=== PATIENT | female | born 1950 | race Caucasian/White ===

== ENCOUNTER 2016-08-31 14:54 | Outpatient (RCR) | payer MEDICARE, OTHER ==
[2016-08-30 13:32] LABS: BASOPHILS % (AUTO) 0 % (0-10); EOSINOPHILS # (AUTO) 0.2 10^3/uL (0.0-0.3); EOSINOPHILS % (AUTO) 2 % (0-10); LYMPHOCYTES # (AUTO) 3.7 X 10^3 (1.0-4.0); LYMPHOCYTES % (AUTO) 40 % (12-44); MEAN CORPUSCULAR HEMOGLOBIN 32 PG (25-34); MEAN CORPUSCULAR HGB CONC 35 G/DL (32-36); MEAN CORPUSCULAR VOLUME 94 FL (80-99); MEAN PLATELET VOLUME 9.8 FL (7.4-10.4); MONOCYTES % (AUTO) 10 % (0-12); NEUTROPHILS # (AUTO) 4.5 X 10^3 (1.8-7.8); NEUTROPHILS % (AUTO) 48 % (42-75); PLATELET COUNT 212 10^3/uL (130-400); RED BLOOD COUNT 4.27 10^6/uL (4.35-5.85); RED CELL DISTRIBUTION WIDTH 12.4 % (10.0-14.5); WHITE BLOOD COUNT 9.3 10^3/uL (4.3-11.0)
[2016-08-30 14:11] LABS: ALANINE AMINOTRANSFERASE 21 U/L (0-55); ALBUMIN 4.4 G/DL (3.2-4.5); ANION GAP 7 MMOL/L (5-14); ASPARTATE AMINO TRANSFERASE 34 U/L (5-34); BILIRUBIN,TOTAL 0.5 MG/DL (0.1-1.0); BLOOD UREA NITROGEN 15 MG/DL (7-18); BUN/CREATININE RATIO 18; CALCIUM 9.6 MG/DL (8.5-10.1); CARBON DIOXIDE 28 MMOL/L (21-32); CHLORIDE 104 MMOL/L (98-107); CREATININE SERUM 0.82 MG/DL (0.60-1.30); GFR ESTIMATED > 60; GLUCOSE 86 MG/DL (70-105); LACTATE DEHYDROGENASE 221 U/L (125-220); POTASSIUM 4.6 MMOL/L (3.6-5.0); SODIUM 139 MMOL/L (135-145); TOTAL PROTEIN 6.5 G/DL (6.4-8.2)
== END 2016-11-28 | disposition home or self-care (01) ==
LOC: ONC 14:54
PROVIDERS: ATTEND Internal Medicine Hematology & Oncology
DX: C91.10 Chronic lymphocytic leukemia of B-cell type not having achieved remission (principal); Z85.3 Personal history of malignant neoplasm of breast
CPT/HCPCS: 36415; 80053; 83615; 85025; 99213

== ENCOUNTER 2016-12-27 09:27 | Outpatient (RCR) | payer MEDICARE, OTHER ==
--- OUTSIDE RECORDS SUMMARY | 2016-12-25 11:28 | XMS REPORT | Continuity of Care Document ---
Author Author [facility] Organization [facility] Address Unknown Phone Unavailable Allergies Active Description Code Type Severity Reaction Onset Reported/Identified Relationship to Patient Clinical Status Yes No Allergy Information Available [id number] Drug Allergy Unknown N/A 05/15/2016 Medications Problems Date Dx Coded Attending Type Code Diagnosis Diagnosed By 09/13/1455 SARAH CAGE Ot D72.820 LYMPHOCYTOSIS (SYMPTOMATIC) 09/13/1455 SARAH CAGE Ot Z85.3 PERSONAL HISTORY OF MALIGNANT NEOPLASM O 03/01/2016 DEL MARCELINO MD, Ot V76.12 OTH SCREEN MAMMO-MALIGN NEOPLASM OF MEGAN 03/01/2016 DEL MARCELINO MD, Ot Z12.31 ENCNTR SCREEN MAMMOGRAM FOR MALIGNANT NE 03/02/2016 DEL MARCELINO MD, Ot Z12.31 ENCNTR SCREEN MAMMOGRAM FOR MALIGNANT NE 03/08/2016 DEL MARCELINO MD Ot V76.12 OTH SCREEN MAMMO-MALIGN NEOPLASM OF MEGAN 03/08/2016 DEL MARCELINO MD Ot D72.829 ELEVATED WHITE BLOOD CELL COUNT, UNSPECI 03/08/2016 DEL MARCELINO MD, Ot Z12.31 ENCNTR SCREEN MAMMOGRAM FOR MALIGNANT NE 03/22/2016 EDL MARCELINO MD Ot D72.820 LYMPHOCYTOSIS (SYMPTOMATIC) 03/30/2016 DEL MARCELINO MD, Ot D72.820 LYMPHOCYTOSIS (SYMPTOMATIC) 03/31/2016 DEL MARCELINO MD, Ot D72.829 ELEVATED WHITE BLOOD CELL COUNT, UNSPECI 03/31/2016 DEL MARCELINO MD, Ot Z12.31 ENCNTR SCREEN MAMMOGRAM FOR MALIGNANT NE 04/11/2016 DEL MARCELINO MD, Ot D72.820 LYMPHOCYTOSIS (SYMPTOMATIC) 05/15/2016 DEL MARCELINO MD Ot V76.12 OTH SCREEN MAMMO-MALIGN NEOPLASM OF MEGAN 05/15/2016 DEL MARCELINO MD, Ot D72.829 ELEVATED WHITE BLOOD CELL COUNT, UNSPECI 05/15/2016 DEL MARCELINO MD, Ot Z12.31 ENCNTR SCREEN MAMMOGRAM FOR MALIGNANT NE 05/15/2016 DEL MARCELINO MD, Ot D72.820 LYMPHOCYTOSIS (SYMPTOMATIC) 05/15/2016 DEL MARCELINO MD, Ot D72.820 LYMPHOCYTOSIS (SYMPTOMATIC) 05/15/2016 SARAH CAGE Ot D72.820 LYMPHOCYTOSIS (SYMPTOMATIC) 05/15/2016 SARAH CAGE Ot Z85.3 PERSONAL HISTORY OF MALIGNANT NEOPLASM O 05/15/2016 DEL MARCELINO MD, Ot V76.12 OTH SCREEN MAMMO-MALIGN NEOPLASM OF MEGAN 05/15/2016 DEL MARCELINO MD, Ot D72.829 ELEVATED WHITE BLOOD CELL COUNT, UNSPECI 05/15/2016 DEL MARCELINO MD, Ot Z12.31 ENCNTR SCREEN MAMMOGRAM FOR MALIGNANT NE 05/15/2016 DEL MARCELINO MD, Ot D72.820 LYMPHOCYTOSIS (SYMPTOMATIC) 05/15/2016 DEL MARCELINO MD, Ot D72.820 LYMPHOCYTOSIS (SYMPTOMATIC) 05/15/2016 SARAH CAGE Ot D72.820 LYMPHOCYTOSIS (SYMPTOMATIC) 05/15/2016 SARAH CAGE Ot Z85.3 PERSONAL HISTORY OF MALIGNANT NEOPLASM O 05/16/2016 SARAH CAGE Ot C91.10 CHRONIC LYMPHOCYTIC LEUK OF B-CELL TYPE 05/19/2016 DEL MARCELINO MD, Ot D72.820 LYMPHOCYTOSIS (SYMPTOMATIC) 06/06/2016 SARAH CAGE Ot C91.10 CHRONIC LYMPHOCYTIC LEUK OF B-CELL TYPE 06/09/2016 DEL MARCELINO MD, Ot V76.12 OTH SCREEN MAMMO-MALIGN NEOPLASM OF MEGAN 06/09/2016 DEL MARCELINO MD, Ot D72.829 ELEVATED WHITE BLOOD CELL COUNT, UNSPECI 06/09/2016 DEL MARCELINO MD, Ot Z12.31 ENCNTR SCREEN MAMMOGRAM FOR MALIGNANT NE 06/09/2016 DEL MARCELINO MD Ot D72.820 LYMPHOCYTOSIS (SYMPTOMATIC) 06/09/2016 DEL MARCELINO MD, Ot D72.820 LYMPHOCYTOSIS (SYMPTOMATIC) 06/09/2016 SARAH CAGE Ot D72.820 LYMPHOCYTOSIS (SYMPTOMATIC) 06/09/2016 SARAH CAGE Ot Z85.3 PERSONAL HISTORY OF MALIGNANT NEOPLASM O 06/09/2016 SARAH CAGE Ot C91.10 CHRONIC LYMPHOCYTIC LEUK OF B-CELL TYPE 07/24/2016 DEL MARCELINO MD Ot V76.12 OTH SCREEN MAMMO-MALIGN NEOPLASM OF MEGAN 07/24/2016 DEL MARCELINO MD, Ot D72.829 ELEVATED WHITE BLOOD CELL COUNT, UNSPECI 07/24/2016 DEL MARCELINO MD Ot Z12.31 ENCNTR SCREEN MAMMOGRAM FOR MALIGNANT NE 07/24/2016 DEL MARCELINO MD Ot D72.820 LYMPHOCYTOSIS (SYMPTOMATIC) 07/24/2016 DEL MARCELINO MD, Ot D72.820 LYMPHOCYTOSIS (SYMPTOMATIC) 07/24/2016 SARAH CAGE Ot D72.820 LYMPHOCYTOSIS (SYMPTOMATIC) 07/24/2016 SARAH CAGE Ot Z85.3 PERSONAL HISTORY OF MALIGNANT NEOPLASM O 07/24/2016 SARAH CAGE Ot C91.10 CHRONIC LYMPHOCYTIC LEUK OF B-CELL TYPE 07/24/2016 SARAH CAGE N Ot D72.820 LYMPHOCYTOSIS (SYMPTOMATIC) 07/24/2016 SARAH CAGE N Ot Z85.3 PERSONAL HISTORY OF MALIGNANT NEOPLASM O 08/29/2016 SARAH CAEG N Ot D72.820 LYMPHOCYTOSIS (SYMPTOMATIC) 08/29/2016 SARAH CAGE N Ot Z85.3 PERSONAL HISTORY OF MALIGNANT NEOPLASM O 08/31/2016 SARAH CAGE N Ot D72.820 LYMPHOCYTOSIS (SYMPTOMATIC) 08/31/2016 SARAH CAGE N Ot Z85.3 PERSONAL HISTORY OF MALIGNANT NEOPLASM O 10/12/2016 SARAH CAGE Ot C91.10 CHRONIC LYMPHOCYTIC LEUK OF B-CELL TYPE 10/12/2016 SARAH CAGE N Ot Z85.3 PERSONAL HISTORY OF MALIGNANT NEOPLASM O 11/28/2016 SARAH CAGE N Ot C91.10 CHRONIC LYMPHOCYTIC LEUK OF B-CELL TYPE 11/28/2016 SARAH CAGE N Ot Z85.3 PERSONAL HISTORY OF MALIGNANT NEOPLASM O 11/29/2016 SARAH CAGE Ot C91.10 CHRONIC LYMPHOCYTIC LEUK OF B-CELL TYPE 11/29/2016 SARAH CAGE N Ot Z85.3 PERSONAL HISTORY OF MALIGNANT NEOPLASM O Procedures Results Encounters ACCT No. Visit Date/Time Discharge Status Pt. Type Provider Facility Loc./Unit Complaint [id number] 08/31/2016 14:54:00 2016 00:01:00 DIS Outpatient SHANNON CAGEJOANA Grayson [facility] ONC [id number] 06/01/2016 13:39:00 2015 14:56:00 DIS Outpatient FAUZIA SARAH Grayson [facility] ONC [id number] 07/01/2014 13:21:00 2013 23:59:59 CLS Outpatient DEL MARCELINO MD [facility] RAD SCREENING [id number] 02/26/2013 12:37:00 2012 23:59:59 CLS Outpatient [id number] 11/29/2016 00:09:00 PEN Preadmit SARAH CAGE [facility] ONC [id number] 05/15/2016 08:44:00 ACT Outpatient SARAH CAGE [facility] RAD CLL [id number] 03/20/2016 10:14:00 ACT Outpatient DEL MARCELINO MD [facility] LAB ELEVATED WBC'S [id number] 03/08/2016 12:09:00 ACT Outpatient DEL MARCELINO MD [facility] LAB INCREASED LYMPHOCYTES [id number] 03/01/2016 13:04:00 ACT Outpatient DEL MARCELINO MD [facility] RAD SCREENING [id number] 03/01/2016 12:02:00 ACT Outpatient DEL MARCELINO MD [facility] LAB LEUKOCYTOSIS
[2016-12-25 11:47] LABS: BASOPHILS % (AUTO) 0 % (0-10); EOSINOPHILS # (AUTO) 0.3 10^3/uL (0.0-0.3); EOSINOPHILS % (AUTO) 3 % (0-10); LYMPHOCYTES # (AUTO) 3.7 X 10^3 (1.0-4.0); LYMPHOCYTES % (AUTO) 41 % (12-44); MEAN CORPUSCULAR HEMOGLOBIN 32 PG (25-34); MEAN CORPUSCULAR HGB CONC 34 G/DL (32-36); MEAN CORPUSCULAR VOLUME 95 FL (80-99); MEAN PLATELET VOLUME 9.5 FL (7.4-10.4); MONOCYTES % (AUTO) 11 % (0-12); NEUTROPHILS # (AUTO) 3.9 X 10^3 (1.8-7.8); NEUTROPHILS % (AUTO) 44 % (42-75); PLATELET COUNT 210 10^3/uL (130-400); RED BLOOD COUNT 4.39 10^6/uL (4.35-5.85); RED CELL DISTRIBUTION WIDTH 12.6 % (10.0-14.5); WHITE BLOOD COUNT 8.9 10^3/uL (4.3-11.0)
[2016-12-25 12:24] LABS: ALANINE AMINOTRANSFERASE 19 U/L (0-55); ALBUMIN 4.1 G/DL (3.2-4.5); ANION GAP 8 MMOL/L (5-14); ASPARTATE AMINO TRANSFERASE 30 U/L (5-34); BILIRUBIN,TOTAL 0.4 MG/DL (0.1-1.0); BLOOD UREA NITROGEN 13 MG/DL (7-18); BUN/CREATININE RATIO 16; CALCIUM 9.3 MG/DL (8.5-10.1); CARBON DIOXIDE 28 MMOL/L (21-32); CHLORIDE 104 MMOL/L (98-107); CREATININE SERUM 0.79 MG/DL (0.60-1.30); GFR ESTIMATED > 60; GLUCOSE 84 MG/DL (70-105); LACTATE DEHYDROGENASE 206 U/L (125-220); POTASSIUM 4.7 MMOL/L (3.6-5.0); SODIUM 140 MMOL/L (135-145); TOTAL PROTEIN 6.4 G/DL (6.4-8.2)
== END 2017-03-25 | disposition home or self-care (01) ==
LOC: ONC 09:27
PROVIDERS: ATTEND Internal Medicine Hematology & Oncology
DX: C91.10 Chronic lymphocytic leukemia of B-cell type not having achieved remission (principal); Z85.3 Personal history of malignant neoplasm of breast
CPT/HCPCS: 36415; 80053; 83615; 85025; 99213

== ENCOUNTER 2017-07-04 14:56 | Outpatient (RCR) | payer MEDICARE, OTHER ==
[2017-06-27 15:18] LABS: BASOPHILS % (AUTO) 0 % (0-10); EOSINOPHILS # (AUTO) 0.2 10^3/uL (0.0-0.3); EOSINOPHILS % (AUTO) 2 % (0-10); LYMPHOCYTES # (AUTO) 4.2 X 10^3 (1.0-4.0); LYMPHOCYTES % (AUTO) 40 % (12-44); MEAN CORPUSCULAR HEMOGLOBIN 33 PG (25-34); MEAN CORPUSCULAR HGB CONC 34 G/DL (32-36); MEAN CORPUSCULAR VOLUME 96 FL (80-99); MONOCYTES % (AUTO) 9 % (0-12); NEUTROPHILS # (AUTO) 5.1 X 10^3 (1.8-7.8); NEUTROPHILS % (AUTO) 48 % (42-75); PLATELET COUNT 220 10^3/uL (130-400); RED BLOOD COUNT 4.22 10^6/uL (4.35-5.85); RED CELL DISTRIBUTION WIDTH 12.3 % (10.0-14.5); WHITE BLOOD COUNT 10.5 10^3/uL (4.3-11.0)
[2017-06-27 15:46] LABS: ALANINE AMINOTRANSFERASE 19 U/L (0-55); ALBUMIN 4.2 GM/DL (3.2-4.5); ANION GAP 7 MMOL/L (5-14); ASPARTATE AMINO TRANSFERASE 30 U/L (5-34); BILIRUBIN,TOTAL 0.5 MG/DL (0.1-1.0); BLOOD UREA NITROGEN 12 MG/DL (7-18); BUN/CREATININE RATIO 15; CALCIUM 9.3 MG/DL (8.5-10.1); CARBON DIOXIDE 30 MMOL/L (21-32); CHLORIDE 105 MMOL/L (98-107); CREATININE SERUM 0.79 MG/DL (0.60-1.30); GFR ESTIMATED > 60; GLUCOSE 104 MG/DL (70-105); LACTATE DEHYDROGENASE 216 U/L (125-220); POTASSIUM 4.2 MMOL/L (3.6-5.0); SODIUM 142 MMOL/L (135-145); TOTAL PROTEIN 6.9 GM/DL (6.4-8.2)
== END 2017-07-14 | disposition home or self-care (01) ==
LOC: ONC 14:56
PROVIDERS: ATTEND Internal Medicine Hematology & Oncology
DX: C91.10 Chronic lymphocytic leukemia of B-cell type not having achieved remission (principal); Z85.3 Personal history of malignant neoplasm of breast
CPT/HCPCS: 36415; 80053; 83615; 85025; 99213

== ENCOUNTER 2018-01-10 13:29 | Outpatient (RCR) | payer MEDICARE, OTHER ==
[2018-01-02 13:34] LABS: BASOPHILS % (AUTO) 0 % (0-10); EOSINOPHILS # (AUTO) 0.2 10^3/uL (0.0-0.3); EOSINOPHILS % (AUTO) 2 % (0-10); HEMATOCRIT 40 % (35-52); HEMOGLOBIN 13.5 G/DL (11.5-16.0); LYMPHOCYTES # (AUTO) 5.2 X 10^3 (1.0-4.0); LYMPHOCYTES % (AUTO) 47 % (12-44); MEAN CORPUSCULAR HEMOGLOBIN 33 PG (25-34); MEAN CORPUSCULAR HGB CONC 34 G/DL (32-36); MEAN CORPUSCULAR VOLUME 98 FL (80-99); MEAN PLATELET VOLUME 10.2 FL (7.4-10.4); MONOCYTES % (AUTO) 9 % (0-12); NEUTROPHILS # (AUTO) 4.8 X 10^3 (1.8-7.8); NEUTROPHILS % (AUTO) 43 % (42-75); PLATELET COUNT 209 10^3/uL (130-400); RED BLOOD COUNT 4.09 10^6/uL (4.35-5.85); RED CELL DISTRIBUTION WIDTH 12.1 % (10.0-14.5); WHITE BLOOD COUNT 11.2 10^3/uL (4.3-11.0)
[2018-01-02 13:58] LABS: ALANINE AMINOTRANSFERASE 18 U/L (0-55); ALBUMIN 4.3 GM/DL (3.2-4.5); ALKALINE PHOSPHATASE 62 U/L (40-136); BILIRUBIN,TOTAL 0.4 MG/DL (0.1-1.0); BUN/CREATININE RATIO 17; CALCIUM 9.4 MG/DL (8.5-10.1); CARBON DIOXIDE 27 MMOL/L (21-32); CHLORIDE 105 MMOL/L (98-107); CREATININE SERUM 0.77 MG/DL (0.60-1.30); GFR ESTIMATED > 60; GLUCOSE 107 MG/DL (70-105); POTASSIUM 4.3 MMOL/L (3.6-5.0); SODIUM 139 MMOL/L (135-145); TOTAL PROTEIN 6.5 GM/DL (6.4-8.2)
== END 2018-04-02 | disposition home or self-care (01) ==
LOC: ONC 13:29
PROVIDERS: ATTEND Internal Medicine Hematology & Oncology
DX: C91.10 Chronic lymphocytic leukemia of B-cell type not having achieved remission (principal); Z85.3 Personal history of malignant neoplasm of breast
CPT/HCPCS: 36415; 80053; 83615; 85025; 99213

== ENCOUNTER 2019-02-11 09:32 | Outpatient (RCR) | payer MEDICARE, OTHER ==
[2019-02-10 11:44] LABS: ABSOLUTE RETIC # 35 10e9/L (24-90); BASOPHILS % (AUTO) 0 % (0-10); EOSINOPHILS # (AUTO) 0.2 10^3/uL (0.0-0.3); EOSINOPHILS % (AUTO) 2 % (0-10); HEMATOCRIT 40 % (35-52); HEMOGLOBIN 13.5 G/DL (11.5-16.0); LYMPHOCYTES # (AUTO) 4.3 X 10^3 (1.0-4.0); LYMPHOCYTES % (AUTO) 42 % (12-44); MEAN CORPUSCULAR HEMOGLOBIN 32 PG (25-34); MEAN CORPUSCULAR HGB CONC 33 G/DL (32-36); MEAN CORPUSCULAR VOLUME 95 FL (80-99); MONOCYTES # (AUTO) 0.9 X 10^3 (0.0-1.0); MONOCYTES % (AUTO) 9 % (0-12); NEUTROPHILS # (AUTO) 4.7 X 10^3 (1.8-7.8); NEUTROPHILS % (AUTO) 47 % (42-75); PLATELET COUNT 199 10^3/uL (130-400); RED CELL DISTRIBUTION WIDTH 12.1 % (10.0-14.5); RETICULOCYTE % 0.82 % (0.50-2.40); WHITE BLOOD COUNT 10.1 10^3/uL (4.3-11.0)
[2019-02-10 12:09] LABS: ALANINE AMINOTRANSFERASE 23 U/L (0-55); ALBUMIN 4.4 GM/DL (3.2-4.5); ALKALINE PHOSPHATASE 66 U/L (40-136); BILIRUBIN,TOTAL 0.6 MG/DL (0.1-1.0); BUN/CREATININE RATIO 18; CALCIUM 9.6 MG/DL (8.5-10.1); CARBON DIOXIDE 26 MMOL/L (21-32); CHLORIDE 102 MMOL/L (98-107); GFR ESTIMATED > 60; GLUCOSE 90 MG/DL (70-105); SODIUM 137 MMOL/L (135-145); TOTAL PROTEIN 6.5 GM/DL (6.4-8.2)
== END 2019-05-11 | disposition home or self-care (01) ==
LOC: ONC 09:32
PROVIDERS: ATTEND Internal Medicine Hematology & Oncology
DX: C91.10 Chronic lymphocytic leukemia of B-cell type not having achieved remission (principal); Z85.3 Personal history of malignant neoplasm of breast
CPT/HCPCS: 36415; 80053; 85025; 85045; 99213

== ENCOUNTER 2020-04-01 09:21 | Outpatient (RCR) | payer MEDICARE, OTHER ==
[2020-03-30 10:31] LABS: ABSOLUTE RETIC # 32 10e9/L (24-90); BASOPHILS % (AUTO) 0 % (0-10); EOSINOPHILS # (AUTO) 0.4 10^3/uL (0.0-0.3); EOSINOPHILS % (AUTO) 4 % (0-10); HEMATOCRIT 40 % (35-52); HEMOGLOBIN 13.5 G/DL (11.5-16.0); LYMPHOCYTES # (AUTO) 6.2 X 10^3 (1.0-4.0); LYMPHOCYTES % (AUTO) 57 % (12-44); MEAN CORPUSCULAR HEMOGLOBIN 32 PG (25-34); MEAN CORPUSCULAR HGB CONC 33 G/DL (32-36); MEAN CORPUSCULAR VOLUME 95 FL (80-99); MEAN PLATELET VOLUME 9.9 FL (7.4-10.4); MONOCYTES # (AUTO) 1.1 X 10^3 (0.0-1.0); MONOCYTES % (AUTO) 10 % (0-12); NEUTROPHILS # (AUTO) 3.1 X 10^3 (1.8-7.8); NEUTROPHILS % (AUTO) 29 % (42-75); PLATELET COUNT 198 10^3/uL (130-400); RETICULOCYTE % 0.75 % (0.50-2.40); WHITE BLOOD COUNT 10.9 10^3/uL (4.3-11.0)
[2020-03-30 10:59] LABS: ALANINE AMINOTRANSFERASE 18 U/L (0-55); ALBUMIN 4.2 GM/DL (3.2-4.5); ALKALINE PHOSPHATASE 63 U/L (40-136); BILIRUBIN,TOTAL 0.5 MG/DL (0.1-1.0); BUN/CREATININE RATIO 14; CALCIUM 9.3 MG/DL (8.5-10.1); CARBON DIOXIDE 27 MMOL/L (21-32); CHLORIDE 104 MMOL/L (98-107); GFR ESTIMATED > 60; GLUCOSE 72 MG/DL (70-105); POTASSIUM 4.2 MMOL/L (3.6-5.0); SODIUM 139 MMOL/L (135-145); TOTAL PROTEIN 6.5 GM/DL (6.4-8.2)
== END 2020-06-28 | disposition home or self-care (01) ==
LOC: ONC 09:21 → EDSTATUS 10:15
PROVIDERS: ATTEND Internal Medicine Hematology & Oncology
DX: C91.10 Chronic lymphocytic leukemia of B-cell type not having achieved remission (principal)
CPT/HCPCS: 80053; 83615; 85025; 85045; 99213

== ENCOUNTER 2021-03-31 10:24 | Outpatient (RCR) | payer MEDICARE, OTHER ==
[2021-03-24 09:30] LABS: BASOPHILS # (AUTO) 0.1 10^3/uL (0.0-0.1); BASOPHILS % (AUTO) 1 % (0-10); EOSINOPHILS # (AUTO) 0.4 10^3/uL (0.0-0.3); EOSINOPHILS % (AUTO) 3 % (0-10); HEMATOCRIT 42 % (35-52); HEMOGLOBIN 13.9 g/dL (11.5-16.0); LYMPHOCYTES # (AUTO) 7.7 10^3/uL (1.0-4.0); LYMPHOCYTES % (AUTO) 65 % (12-44); MEAN CORPUSCULAR HEMOGLOBIN 32 pg (25-34); MEAN CORPUSCULAR HGB CONC 33 g/dL (32-36); MEAN CORPUSCULAR VOLUME 97 fL (80-99); MEAN PLATELET VOLUME 10.1 fL (9.0-12.2); MONOCYTES % (AUTO) 8 % (0-12); NEUTROPHILS # (AUTO) 2.7 10^3/uL (1.8-7.8); NEUTROPHILS % (AUTO) 23 % (42-75); PLATELET COUNT 171 10^3/uL (130-400); WHITE BLOOD COUNT 11.7 10^3/uL (4.3-11.0)
[2021-03-24 09:56] LABS: ALANINE AMINOTRANSFERASE 18 U/L (0-55); ALBUMIN 4.1 GM/DL (3.2-4.5); ALKALINE PHOSPHATASE 57 U/L (40-136); BILIRUBIN,TOTAL 0.5 MG/DL (0.1-1.0); BUN/CREATININE RATIO 14; CALCIUM 9.6 MG/DL (8.5-10.1); CARBON DIOXIDE 28 MMOL/L (21-32); CHLORIDE 103 MMOL/L (98-107); GFR ESTIMATED > 60; GLUCOSE 88 MG/DL (70-105); POTASSIUM 4.2 MMOL/L (3.6-5.0); SODIUM 139 MMOL/L (135-145); TOTAL PROTEIN 6.7 GM/DL (6.4-8.2)
== END 2021-06-22 | disposition home or self-care (01) ==
LOC: ONC 10:24
PROVIDERS: ATTEND Internal Medicine Hematology & Oncology
DX: C91.10 Chronic lymphocytic leukemia of B-cell type not having achieved remission (principal)
CPT/HCPCS: 80053; 83615; 85025; 99213

== ENCOUNTER → 2021-11-24 | Outpatient (CLI) | payer MEDICARE, OTHER ==
--- NOTE | 2021-11-24 14:11 | Diagnostic Imaging Report ---
INDICATION: Routine screening. Comparison is made with prior mammogram 03/01/2016. 2-D and 3-D bilateral screening mammography was performed with CAD. Both breasts are heterogeneously dense, limiting the sensitivity of mammography. Post-lumpectomy changes in the right breast are again noted. The post-therapeutic right breast appears stable. Left breast is unremarkable. No mass is identified. No malignant-appearing microcalcifications are seen. There are some multiple lymph nodes in the axilla bilaterally which appear to be more numerous than prior mammogram, indeterminate. IMPRESSION: BI-RADS Category 0 No mammographic features suspicious for malignancy are identified. However, there are some prominent and slightly dense lymph nodes in the axillae bilaterally which appears new since prior mammogram from 2016. Axillary ultrasound bilaterally would be useful for further evaluation. Dictated by: Dictated on workstation # [id number]
== END ==
LOC: RAD 11:30
PROVIDERS: ATTEND Internal Medicine
DX: Z12.31 Encounter for screening mammogram for malignant neoplasm of breast (principal)
CPT/HCPCS: 77063; 77067

== ENCOUNTER → 2021-12-05 | Outpatient (CLI) | payer MEDICARE, OTHER ==
--- NOTE | 2021-12-05 12:44 | Diagnostic Imaging Report ---
Bilateral breast ultrasound, limited. INDICATION: Abnormal mammogram The screening mammogram performed on 11/24/2021 failed to show any sign of malignancy. However, there did appear to be slightly enlarged lymph nodes in each axilla. By history, the patient has a diagnosis of chronic lymphocytic leukemia. On this exam, there are several prominent lymph nodes in each axilla. The 2 largest lymph nodes on the right measure 2.1 x 1.1 x 1.4 cm and 1.9 x 1.1 x 1.1 cm. On the left the two largest nodes measure 1.7 x 1.2 x 1.5 cm and 1.4 x 0.6 x 1.2 cm. These nodes have a typical appearance and there is no clear evidence for replacement of the nodes by a neoplastic or infectious process. Even so, the prominence of the nodes and the fact that there was no adenopathy on the previous mammogram performed on 02/20/2016 does raise the question of recurrent neoplasm. Clinical follow-up is recommended. If a tissue diagnosis is desired, then an ultrasound-guided biopsy of one of the larger lymph nodes should be considered. If further imaging is desired, then PET/CT would be recommended. IMPRESSION: 1. There are several prominent lymph nodes in each axilla. The possibility that these are related to recurrent neoplastic disease should be the primary concern. Recommendations as above. 2. These results were discussed with Dr. Christine Osullivan. ACR BI-RADS Category 4: Suspicious abnormality. Result letter will be mailed to the patient. Note: At least 10% of breast cancer is not imaged by mammography. Dictated by: Dictated on workstation # [id number]
== END ==
LOC: RAD 11:00
PROVIDERS: ATTEND Nurse Practitioner Family
DX: R59.0 Localized enlarged lymph nodes (principal)
CPT/HCPCS: 76642

== ENCOUNTER → 2022-05-24 | Outpatient (CLI) | payer MEDICARE, OTHER ==
--- NOTE | 2022-05-24 15:50 | Diagnostic Imaging Report ---
INDICATION: Right hand injury with pain and swelling to the fourth finger. TIME OF EXAM: 02:38 p.m. FINDINGS: The metacarpals are intact. The phalanges appear to be intact. No fractures are seen. There are some degenerative changes involving multiple interphalangeal joints. Carpus is unremarkable. IMPRESSION: Chronic changes. No acute abnormality is detected. Dictated by: Dictated on workstation # [id number]
== END ==
LOC: RAD 14:21
PROVIDERS: ATTEND Internal Medicine
DX: S69.91XA Unspecified injury of right wrist, hand and finger(s), initial encounter (principal); X58.XXXA Exposure to other specified factors, initial encounter
CPT/HCPCS: 73130

== ENCOUNTER → 2022-05-25 | Outpatient (CLI) | payer MEDICARE, OTHER ==
--- NOTE | 2022-05-25 16:12 | Diagnostic Imaging Report ---
INDICATION: Enlarged axillary lymph nodes. CORRELATION is made with prior ultrasound from 12/05/2021. Sonographic interrogation of the bilateral axillae were performed. The largest 2 lymphs nodes were measured on each side. The largest 2 lymph nodes in the right axilla measured 2.0 x 1.1 x 1.3 cm and 2.0 x 1.0 x 1.5 cm. The largest lymph nodes left axilla measured 2.6 x 1.4 x 1.8 cm and 1.6 x 1.5 x 1.1 cm. Lymph nodes again demonstrate a fatty hilum although overlying cortex is slightly thickened. IMPRESSION: Nodes on the right appear to be fairly stable. Lymph nodes left axilla do appear to be slightly larger when compared with prior study from 12/05/2021. Dictated by: Dictated on workstation # [id number]
== END ==
LOC: RAD 13:28
PROVIDERS: ATTEND Internal Medicine
DX: C91.10 Chronic lymphocytic leukemia of B-cell type not having achieved remission (principal); Z85.3 Personal history of malignant neoplasm of breast

== ENCOUNTER → 2022-11-24 | Outpatient (CLI) | payer MEDICARE, OTHER ==
--- NOTE | 2022-11-24 17:19 | Diagnostic Imaging Report ---
PROCEDURE: US Thyroid. TECHNIQUE: Multiple real-time grayscale images were obtained of the thyroid in various projections. INDICATION: Thyroid goiter. COMPARISON: None available. FINDINGS: Right thyroid lobe: The right thyroid lobe measures 5.7 x 1.7 x 1.7 cm. Normal vascularity is present. Benign simple cyst in the mid right thyroid measures 0.3 cm, TI-RADS 1. Isthmus: The thyroid isthmus measures 0.3 cm and is without nodule. Left thyroid lobe: The left thyroid lobe measures 4.3 x 1.2 x 1.3 cm. There is a mixed solid and cystic nodule that is wider than tall with circumscribed margins and no echogenic foci in the mid left thyroid lobe, measuring up to 0.7 cm and is compatible with a TI-RADS 2 nodule. IMPRESSION: Bilateral thyroid nodules are not suspicious and do not require dedicated follow-up imaging or FNA. ACR TI-RADS: TR2. TI-RADS Recommendations:TR2 - Not Suspicious. No FNA. Dictated by: Dictated on workstation # [id number]
== END ==
LOC: RAD 09:41
PROVIDERS: ATTEND Otolaryngology Otolaryngology/Facial Plastic Surgery
DX: E04.9 Nontoxic goiter, unspecified (principal)
CPT/HCPCS: 76536

== ENCOUNTER → 2023-08-14 | Outpatient (CLI) | payer MEDICARE, OTHER ==
--- NOTE | 2023-08-14 15:46 | Diagnostic Imaging Report ---
INDICATION: Postmenopausal screening history of leukemia COMPARISON: 08/14/2012 FINDINGS: AP Spine L1-L4: [BMD (g/cm2): 0.980] [T-Score: -1.8] [Z-Score: 0.2] [BMD Previous: 1.072] [BMD % Change: -8.6*] LT Hip Neck: [BMD (g/cm2): 0.938] [T-Score: -0.7] [Z-Score: 1.4] LT Hip Total: [BMD (g/cm2):0.887] [T-Score:-1.0] [Z-Score: 0.9] [BMD Previous: 0.851] [BMD % Change: 4.2*] RT Hip Neck: [BMD (g/cm2):0.908] [T-Score:-0.9] [Z-Score:1.1] RT Hip Total: [BMD (g/cm2):0.920] [T-score:-0.7] [Z-Score:1.2] [BMD Previous:0.865] [BMD % Change:6.4*] *Indicates significant change from prior examination based on 95% confidence level. World Health Organization criteria for BMD interpretation classify patients as Normal (T-score at or above -1.0), Osteopenic (T-score between -1.0 and -2.5) or Osteoporotic (T-score at or below -2.5). LIMITATIONS AND MODIFICATION: None. FRACTURE RISK (FRAX SCORE): The ten year probability of (%): Major Osteoporotic Fracture: [8.4] Hip Fracture: [1.3] IMPRESSION: 1. Osteopenia (Low bone mass). 2. Bone mineral density has decreased by a statistically significant amount, as detailed above. 3. See below National Osteoporosis Foundation guidelines on when to potentially initiate pharmacologic therapy. Based on the National Osteoporosis Foundation Guidelines, pharmacologic treatment should be initiated in any of the following, unless clinical conditions suggest otherwise: * Any patient with prior fragility fracture of the hip or vertebrae. A spine fracture indicates 5X risk for subsequent spine fracture and 2X risk for subsequent hip fracture. * Osteoporosis (T-score <-2.5). * Postmenopausal women and men age 50 and older with low bone mass/osteopenia (T-score between -1.0 and -2.5) by DXA and 10-year major osteoporotic fracture greater than 20% or a 10-year probability of hip fracture greater than 3%. These fracture risks are supplied above in the FRAX score, if applicable. * Clinician judgement and/or patient preferences may indicate treatment for people with 10-year fracture probabilities above or below these levels. Dictated by: Dictated on workstation # [id number]
== END ==
LOC: RAD 12:40
PROVIDERS: ATTEND Family Medicine
DX: M85.80 Other specified disorders of bone density and structure, unspecified site (principal); Z91.89 Other specified personal risk factors, not elsewhere classified; Z78.0 Asymptomatic menopausal state
CPT/HCPCS: 77080